=== PATIENT | female | born 1960 | race African-American/Black ===

== ENCOUNTER 2018-08-12 00:32 | Emergency (ER) | payer MEDICAID ==
[~2018-08-12] VITALS: Ht 175.3 cm; Wt 50.8 kg
--- NOTE | 2018-08-12 00:52 | Emergency Room Report ---
History of Present Illness General Chief Complaint: Lower Back Pain or Injury Source: Patient Present Illness HPI Patient reports that about a week ago she was going to sit down She thought there was a chair behind her however there was no chair and the patient felt the ground Has had some off-and-on discomfort in the low back lower lumbar spine upper pelvic area Patient feels that sometimes when standing she has some discomfort Denies any neuropathy in the lower extremities Denies any change in sensory Denies any bowel or urinary incontinence Pain is 4 out of 10 worse with standing and walking Allergies: Coded Allergies: MORPHINE (Verified Allergy, Unknown, 08/12/18) Patient History Past Medical History: see triage record Pertinent Family History: none Now: No Reviewed Nursing Documentation: PMH: Agreed; PSxH: Agreed Nursing Documentation-PMH Past Medical History: No Stated History Review of Systems All Other Systems: negative except mentioned in HPI Physical Exam Vital Signs Date Time Temp Pulse Resp B/P (MAP) Pulse Ox O2 Delivery O2 Flow Rate FiO2 08/12/18 00:37 98.1 78 16 138/85 98 Room Air Sp02 EP Interpretation: reviewed, normal General Appearance: well appearing, no apparent distress Head: normocephalic, atraumatic Eyes: bilateral eye PERRL, bilateral eye EOMI ENT: hearing grossly normal, normal pharynx, TMs + canals normal, uvula midline Neck: full range of motion, supple, no meningismus, no bony tend Respiratory: lungs clear, normal breath sounds, no rhonchi, no respiratory distress, no retraction, no accessory muscle use Cardiovascular #1: normal peripheral pulses, regular rate, rhythm, no edema, no gallop, no JVD, no murmur Gastrointestinal: normal bowel sounds, non tender, soft, no mass, no organomegaly, non-distended, no guarding, no hernia, no pulsatile mass, no rebound Genitourinary: no CVA tenderness Musculoskeletal: other - Minimal discomfort paraspinal L3,4. Some discomfort on bilateral posterior superior iliac crest on palpation, otherwise patient ambulatory Neurologic: oriented x3, responsive, food photographer III-XII nml as tested, motor strength/ tone normal, sensory intact Psychiatric: mood/affect normal Skin: normal color, no rash, warm/dry, palpation normal Lymphatic: normal inspection, no adenopathy Medical Decision Making Diagnostic Impression: Primary Impression: Low back pain Additional Impression: Contusion ER Course Given the patient's history of trauma x-ray imaging was obtained No obvious acute pathology is seen patient is ambulatory Patient's sister was also here as a patient and they're being discharged together Patient will follow closely Other X-Ray Diagnostic Results Other X-Ray Diagnostic Results : X-Ray ordered: L-spine # of Views/Limited Vs Complete: 4 View Indication: Pain EP Interpretation: Yes Interpretation: no dislocation, no soft tissue swelling, no fractures Impression: No acute disease Electronically Signed by: Kristopher Hobbs DO Last Vital Signs Date Time Temp Pulse Resp B/P (MAP) Pulse Ox O2 Delivery O2 Flow Rate FiO2 08/12/18 00:37 98.1 78 16 138/85 98 Room Air Status: improved Disposition: HOME, SELF-CARE Condition: Improved Additional Instructions: Patient is provided with the discharge instructions notified to follow up with primary doctor in the next 2-3 days otherwise return to the er with any worsening symptoms. Please note that this report is being documented using [employer] technology. This can lead to erroneous entry secondary to incorrect interpretation by the dictating instrument. Kristopher Hobbs DO Aug 12, 2018 00:52
[2018-08-12 00:56] VITALS: BP 113/81
[2018-08-12 01:37] VITALS: BP 113/81
--- NOTE | 2018-08-13 13:38 | Diagnostic Imaging Report ---
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 Otherwise normal bony alignment vertebral body heights are preserved. The disc spaces are preserved. There are small anterior osteophytes at multiple levels. Impression: No acute bony trauma
== END 2018-08-12 01:37 | disposition home or self-care (01) ==
LOC: EMR 00:58
DX: M54.5 Low back pain (principal)
CPT/HCPCS: 72110; 99283